=== PATIENT | male | born 1965 | race Caucasian/White ===

== ENCOUNTER 2017-09-10 16:04 | Observation (INO) ==
[2017-09-10] MEDS ORDERED: 0.9 % Sodium Chloride 1,000 ML IVC ONE (16:17)
[2017-09-10 16:45] LABS: ABG Base Excess 1 mEq/L (-2 to 3); ABG HCO3 27 mEq/L (21-27); ABG Oxygen Saturation 94 % (95-98); ABG PCO2 47 mmHg (35-45); ABG PH 7.37 pH Units (7.32-7.45); ABG PO2 74 mmHg (85-104); ABG TCO2 28 mEq/L (20-26)
[2017-09-10 17:14] LABS: Basophils % 0.4 %; Eosinophils # 0.1 K/mcL (0.0-0.6); Eosinophils % 1.5 %; Hematocrit 47.2 % (37.5-50.1); Hemoglobin 16.2 g/dL (12.9-16.9); Immature Granulocytes % 0.4 % (0-4); Lymphocytes # 1.9 K/mcL (0.6-4.6); Lymphocytes % 22.9 %; Mean Corpuscular HGB Conc 34.3 g/dL (31.6-35.5); Mean Corpuscular Hemoglobin 29.6 pg (28.0-33.3); Mean Corpuscular Volume 86.1 fL (83.0-100.0); Mean Platelet Volume 10.7 fL (9.4-12.4); Monocytes # 0.4 K/mcL (0.0-1.3); Monocytes % 4.9 %; Neutrophils # 5.9 K/mcL (1.6-8.9); Platelet Count 183 K/mcL (140-400); Red Blood Count 5.48 M/mcL (4.19-5.50); Red Cell Distribution Width 13.2 % (11.5-14.5); Segmented Neutrophils % 69.9 %
[2017-09-10 17:21] LABS: INR 2.9; Prothrombin Time 32.3 Seconds (9.4-12.1)
--- NOTE | 2017-09-10 17:21 | Emergency Department Note ---
Disposition Clinical Impression: History of mitral valve replacement with mechanical valve, Hypertrophic obstructive cardiomyopathy (HOCM), History of ventricular septal myectomy Altered mental status Qualifiers: Altered mental status type: unspecified Qualified Code(s): R41.82 - Altered mental status, unspecified Disposition: Admitted As Inpatient Condition: Fair Time of Disposition: 19:45 Altered Mental Status HPI - General Chief Complaint: ED Altered Mental Status Stated Complaint: AMS Time Seen by Provider: 09/10/17 16:06 Source: patient Mode of arrival: ambulatory Limitations: no limitations Nursing Notes Reviewed: Yes Vital Signs Reviewed: Yes - History of Present Illness HPI Narrative: 52-year-old male presented to the emergency department with altered mental status. They said that he went to bed last night was normal woke up this was about 9:00 he was normal again but he did take sleep medication including and BN and lorazepam this is normal for him. He said now he is very weak very tired and seems to be very confused. When asked with the present was he said it was Diego Kemp. The head is a very abnormal for him. Patient was recently diagnosed with diabetes started on metformin this been patient since then. Patient does have history of HOCM where he has had multiple cardiac surgeries. He also had a valve replacement so he is on Coumadin. Patient states there is been no falls and family agrees. He does not have any pain anywhere. He is not hurting anywhere patient is deftly very confused and lethargic. He has not had any fevers or chills or nausea or vomiting or chest pain or shortness of breath or headache or blurry vision or neck pain or back pain or abdominal pain or pain with urination or pain or to 90 arms or legs or generalized weakness or changes in bowel movements. - Related Data Home Medications Medication Instructions Recorded Confirmed Furosemide [Lasix] 20 mg PO DAILY 08/01/15 09/10/17 LORazepam [Ativan] 1 mg PO BID PRN 08/01/15 09/10/17 Spironolactone [Aldactone] 50 mg PO QAM 08/01/15 09/10/17 Warfarin [Coumadin] 5 mg PO MOTUTHFRSA 08/01/15 09/10/17 Carvedilol 18.75 mg PO BID 10/07/16 09/10/17 amLODIPine [Norvasc] 5 mg PO DAILY 10/07/16 09/10/17 Simvastatin [Zocor] 20 mg PO HS 09/10/17 09/10/17 Tamsulosin [Flomax] 0.4 mg PO HS 09/10/17 09/10/17 Warfarin [Coumadin] 2.5 mg PO SUWE 09/10/17 09/10/17 Zolpidem [Ambien] 10 mg PO HS PRN 09/10/17 09/10/17 metFORMIN [Glucophage] 500 mg PO BID 09/10/17 09/10/17 Allergies Allergy/AdvReac Type Severity Reaction Status Date / Time No Known Allergies Allergy Verified 11/14/16 09:07 Review of Systems: 10 point review of systems done and negative unless otherwise stated in the history of present illness. All systems ED: reviewed and negative except as stated. Review of Systems: As Per [facility] Past Medical History - Past Medical History Attestation: Yes The following information was validated with the patient. Source: patient Medical history: Reports: atrial fibrillation, cardiomyopathy, CHF, coronary artery disease, GERD, hypertension, myocardial infarction, valvular heart disease, other Surgical history: Reports: heart valve replacement, pacemaker/AICD Psychiatric history: Reports: anxiety, panic disorder - Social History Smoking Status: Former smoker Smokeless Tobacco Status: No Alcohol use: Reports: none Drug use: Reports: none Physical Exam - General Limitations: no limitations General appearance: alert, in no apparent distress - Head Head exam: atraumatic, normocephalic, normal inspection - Eye Eye exam: Present: normal appearance, PERRL, EOMI - ENT ENT exam: normal exam, normal oropharynx, mucous membranes moist - Neck Neck exam: Present: normal inspection, full ROM, trachea midline - Chest Chest inspection: Present: normal inspection, symmetric chest wall rise - Respiratory Respiratory exam: Present: normal lung sounds bilaterally - Cardiovascular Cardiovascular exam: Present: regular rate, normal rhythm, normal heart sounds - Abdominal Exam Abdominal exam: Present: soft, Non-Tender. Absent: tenderness, distention, guarding, rebound, rigidity - Extremities Exam Extremities exam: Present: normal inspection, full ROM. Absent: tenderness, pedal edema - Expanded Lower Extremity Exam Neurovascular/Tendon exam: Present: normal capillary refill. Absent: pulse deficit, motor deficit, sensory deficit, tendon deficit - Back Exam Back exam: Present: normal inspection, full ROM. Absent: tenderness, CVA tenderness (R), CVA tenderness (L) - Neurological Exam Neurological exam: Present: alert, oriented X3 - Expanded Neurological Exam Patient oriented to: Present: person, place Speech: Present: fluid speech Cranial nerves: EOM function (II, III, IV, ): Normal, facial sensation (V): Normal, facial palsy (VII): Normal, spinal accessory function (XI): Normal, tongue deviation (XII): Normal Cerebellar function: finger to nose: Normal, heel to burrell: Normal Motor strength - LUE: 3/5 Motor strength - RUE: 3/5 Motor strength - LLE: 3/5 Motor strength - RLE: 3/5 Upper motor neuron exam: charu neglect: Absent bilaterally, pronator drift: Absent bilaterally Sensory exam upper extremity: light touch: Normal Sensory exam lower extremity: light touch: Normal Coma Scale Eye Opening: Spontaneous Coma Scale Motor Response: Obeys Commands Coma Scale Verbal Response: Confused Coma Scale Total: 14 - Skin Skin exam: Present: warm, dry, intact, normal color Course Course Narrative: 52-year-old male presented to the emergency department complaining of change in mental status. We will get CT head as well as labs including CBC, BMP, lactate , ABG carboxyhemoglobin, urinalysis, troponin, EKG as well as urinalysis and chest x-ray. There is no acute focal signs or neurological deficits there is no reason to call a code stroke at this time. Disposition pending results. Vital Signs Temperature 98.1 F 09/10/17 16:08 Pulse Rate 64 09/10/17 16:08 Respiratory Rate 18 09/10/17 16:08 Blood Pressure 149/93 09/10/17 16:08 O2 Sat by Pulse Oximetry 98 09/10/17 16:08 Temperature 98.2 F 09/10/17 20:13 Pulse Rate 62 09/10/17 18:22 Respiratory Rate 18 09/10/17 20:13 Blood Pressure 152/84 09/10/17 20:13 O2 Sat by Pulse Oximetry 97 09/10/17 18:22 Oxygen Delivery Oxygen Delivery Room Air Altered Mental Status - MDM Narrative Medical decision making narrative: 52-year-old male presents to the emergency department complaining of altered mental status. After evaluating him he is alert and partially oriented only to person and place but not to time. He is still little confused. We did do CT head as well as chest x-ray. These came back negative. All labs came back negative including urinalysis urine drug screen as well as carboxyhemoglobin ABG and all other labs. Patient is still stable at this time. There was no signs of fevers. We did not find etiology for his altered mental status. Did talk about doing lumbar puncture and the patient will due to him being on Coumadin because of a cousin of his valve replacement we felt that was not to be done here in the emergency department. Patient most likely needs an MRI for further evaluation of his altered mental status. I spoke with the Hospital is Dr. Rmairez who agreed to admit the patient to their service. Patient is admitted in stable condition. Patient did not have any acute neurological findings. He also has no normal and a clock this morning there is no reason to call a code stroke at this time. Head CT 09/10/17 16:13 IMPRESSION: No acute intracranial abnormality. D/ / Leon Ambrocio / Leon Ambrocio Interpreting Provider: Leon Ambrocio Chest X-Ray 09/10/17 16:17 IMPRESSION: No evidence of acute cardiopulmonary process. D/ / Alon Jesus MD / Alon Jesus MD Interpreting Provider: Alon Jesus MD - Medical Records Medical records reviewed: Yes I reviewed the patient's medical records. - Lab Data Lab results reviewed: Yes I reviewed the patient's lab results. Result diagrams: 09/10/17 16:37 09/10/17 16:37 Lab Results 09/10/17 09/10/17 09/10/17 Range/Units 16:27 16:37 16:37 WBC 8.4 (4.3-11.1) K/mcL RBC 5.48 (4.19-5.50) M/mcL Hgb 16.2 (12.9-16.9) g/dL Hct 47.2 (37.5-50.1) % MCV 86.1 (83.0-100.0) fL MCH 29.6 (28.0-33.3) pg MCHC 34.3 (31.6-35.5) g/dL RDW 13.2 (11.5-14.5) % Plt Count 183 (140-400) K/mcL MPV 10.7 (9.4-12.4) fL Immature Gran % 0.4 (0-4) % Seg Neutrophils % 69.9 % Lymphocytes % 22.9 % Monocytes % 4.9 % Eosinophils % 1.5 % Basophils % 0.4 % Neutrophils # 5.9 (1.6-8.9) K/mcL Lymphocytes # 1.9 (0.6-4.6) K/mcL Monocytes # 0.4 (0.0-1.3) K/mcL Eosinophils # 0.1 (0.0-0.6) K/mcL Basophils # 0.0 (0.0-0.2) K/mcL PT (9.4-12.1) Seconds INR APTT (26.0-36.0) Seconds ABG pH 7.37 (7.32-7.45) pH Units ABG pCO2 47 H (35-45) mmHg ABG pO2 74 L (85-104) mmHg ABG HCO3 27 (21-27) mEq/L ABG Total CO2 28 H (20-26) mEq/L ABG O2 Saturation 94 L (95-98) % ABG Base Excess 1 (-2 to 3) mEq/L Carboxyhemoglobin 5.8 H (0-5) % Inspired O2 21.0 (1-15=lpm [id number]=%) Sodium (136-145) mEq/L Potassium (3.5-5.1) mEq/L Chloride (98-107) mEq/L Carbon Dioxide (23-29) mEq/L BUN (6-20) mg/dL Creatinine (0.70-1.30) mg/dL Est GFR ( Amer) (> 60) Est GFR (Non-Af Amer) (> 60) BUN/Creatinine Ratio (6-26) Glucose (70-105) mg/dL Calculated Osmolality (280-300) Calcium (8.6-10.3) mg/dL Total Bilirubin (0.3-1.0) mg/dL Direct Bilirubin (0.0-0.2) mg/dL Indirect Bilirubin (0.0-1.2) mg/dL AST (13-39) Units/L ALT (7-52) Units/L Alkaline Phosphatase (34-104) Units/L Ammonia (16-53) mcmol/L Troponin I (< 0.04) ng/mL Serum Total Protein (6.4-8.9) g/dL Albumin (3.5-5.7) g/dL Globulin (2.4-3.5) g/dL Albumin/Globulin Ratio (1.1-2.2) TSH (0.340-5.600) mcIU/mL Urine Color (Yellow) Urine Clarity (Clear) Urine pH (5.0-8.0) pH Units Ur Specific [place] (1.010-1.025) Urine Protein (Neg-Trace) mg/dL Urine Glucose (UA) (Normal) mg/dL Urine Ketones (Negative) mg/dL Urine Blood (Negative) Urine Nitrite (Negative) Urine Bilirubin (Negative) Urine Urobilinogen (Normal) mg/dL Ur Leukocyte Esterase (Negative) Ur Culture Indicated? (NO) Urine Opiates Screen (Dnoyen=115) ng/mL Ur Barbiturates Screen (Dluvcq=645) ng/mL Ur Phencyclidine Scrn (Cutoff=25) ng/mL Ur Amphetamines Screen (Teqhum=0904) ng/mL U Benzodiazepines Scrn (Gpnkrt=381) ng/mL Urine Cocaine Screen (Cutoff= 300) ng/mL U Marijuana (THC) Screen (Cutoff = 50) ng/mL Ethyl Alcohol (Less than 10) mg/dL 09/10/17 09/10/17 09/10/17 Range/Units 16:37 16:37 16:37 WBC (4.3-11.1) K/mcL RBC (4.19-5.50) M/mcL Hgb (12.9-16.9) g/dL Hct (37.5-50.1) % MCV (83.0-100.0) fL MCH (28.0-33.3) pg MCHC (31.6-35.5) g/dL RDW (11.5-14.5) % Plt Count (140-400) K/mcL MPV (9.4-12.4) fL Immature Gran % (0-4) % Seg Neutrophils % % Lymphocytes % % Monocytes % % Eosinophils % % Basophils % % Neutrophils # (1.6-8.9) K/mcL Lymphocytes # (0.6-4.6) K/mcL Monocytes # (0.0-1.3) K/mcL Eosinophils # (0.0-0.6) K/mcL Basophils # (0.0-0.2) K/mcL PT 32.3 H (9.4-12.1) Seconds INR 2.9 APTT 44.8 H (26.0-36.0) Seconds ABG pH (7.32-7.45) pH Units ABG pCO2 (35-45) mmHg ABG pO2 (85-104) mmHg ABG HCO3 (21-27) mEq/L ABG Total CO2 (20-26) mEq/L ABG O2 Saturation (95-98) % ABG Base Excess (-2 to 3) mEq/L Carboxyhemoglobin (0-5) % Inspired O2 (1-15=lpm [id number]=%) Sodium 132 L (136-145) mEq/L Potassium 4.0 (3.5-5.1) mEq/L Chloride 99 (98-107) mEq/L Carbon Dioxide 25 (23-29) mEq/L BUN 13 (6-20) mg/dL Creatinine 0.91 (0.70-1.30) mg/dL Est GFR ( Amer) > 60 (> 60) Est GFR (Non-Af Amer) > 60 (> 60) BUN/Creatinine Ratio 14 (6-26) Glucose 374 H (70-105) mg/dL Calculated Osmolality 289 (280-300) Calcium 9.4 (8.6-10.3) mg/dL Total Bilirubin 1.9 H (0.3-1.0) mg/dL Direct Bilirubin 0.4 H (0.0-0.2) mg/dL Indirect Bilirubin 1.5 H (0.0-1.2) mg/dL AST 18 (13-39) Units/L ALT 27 (7-52) Units/L Alkaline Phosphatase 97 (34-104) Units/L Ammonia 46 (16-53) mcmol/L Troponin I < 0.03 (< 0.04) ng/mL Serum Total Protein 7.4 (6.4-8.9) g/dL Albumin 4.4 (3.5-5.7) g/dL Globulin 3.0 (2.4-3.5) g/dL Albumin/Globulin Ratio 1.5 (1.1-2.2) TSH 2.506 (0.340-5.600) mcIU/mL Urine Color (Yellow) Urine Clarity (Clear) Urine pH (5.0-8.0) pH Units Ur Specific [place] (1.010-1.025) Urine Protein (Neg-Trace) mg/dL Urine Glucose (UA) (Normal) mg/dL Urine Ketones (Negative) mg/dL Urine Blood (Negative) Urine Nitrite (Negative) Urine Bilirubin (Negative) Urine Urobilinogen (Normal) mg/dL Ur Leukocyte Esterase (Negative) Ur Culture Indicated? (NO) Urine Opiates Screen (Vutlsw=888) ng/mL Ur Barbiturates Screen (Gttgid=883) ng/mL Ur Phencyclidine Scrn (Cutoff=25) ng/mL Ur Amphetamines Screen (Nhduoi=6978) ng/mL U Benzodiazepines Scrn (Kfxiqg=050) ng/mL Urine Cocaine Screen (Cutoff= 300) ng/mL U Marijuana (THC) Screen (Cutoff = 50) ng/mL Ethyl Alcohol < 10 (Less than 10) mg/dL 09/10/17 09/10/17 Range/Units 18:00 18:00 WBC (4.3-11.1) K/mcL RBC (4.19-5.50) M/mcL Hgb (12.9-16.9) g/dL Hct (37.5-50.1) % MCV (83.0-100.0) fL MCH (28.0-33.3) pg MCHC (31.6-35.5) g/dL RDW (11.5-14.5) % Plt Count (140-400) K/mcL MPV (9.4-12.4) fL Immature Gran % (0-4) % Seg Neutrophils % % Lymphocytes % % Monocytes % % Eosinophils % % Basophils % % Neutrophils # (1.6-8.9) K/mcL Lymphocytes # (0.6-4.6) K/mcL Monocytes # (0.0-1.3) K/mcL Eosinophils # (0.0-0.6) K/mcL Basophils # (0.0-0.2) K/mcL PT (9.4-12.1) Seconds INR APTT (26.0-36.0) Seconds ABG pH (7.32-7.45) pH Units ABG pCO2 (35-45) mmHg ABG pO2 (85-104) mmHg ABG HCO3 (21-27) mEq/L ABG Total CO2 (20-26) mEq/L ABG O2 Saturation (95-98) % ABG Base Excess (-2 to 3) mEq/L Carboxyhemoglobin (0-5) % Inspired O2 (1-15=lpm [id number]=%) Sodium (136-145) mEq/L Potassium (3.5-5.1) mEq/L Chloride (98-107) mEq/L Carbon Dioxide (23-29) mEq/L BUN (6-20) mg/dL Creatinine (0.70-1.30) mg/dL Est GFR ( Amer) (> 60) Est GFR (Non-Af Amer) (> 60) BUN/Creatinine Ratio (6-26) Glucose (70-105) mg/dL Calculated Osmolality (280-300) Calcium (8.6-10.3) mg/dL Total Bilirubin (0.3-1.0) mg/dL Direct Bilirubin (0.0-0.2) mg/dL Indirect Bilirubin (0.0-1.2) mg/dL AST (13-39) Units/L ALT (7-52) Units/L Alkaline Phosphatase (34-104) Units/L Ammonia (16-53) mcmol/L Troponin I (< 0.04) ng/mL Serum Total Protein (6.4-8.9) g/dL Albumin (3.5-5.7) g/dL Globulin (2.4-3.5) g/dL Albumin/Globulin Ratio (1.1-2.2) TSH (0.340-5.600) mcIU/mL Urine Color Yellow (Yellow) Urine Clarity Clear (Clear) Urine pH 6.0 (5.0-8.0) pH Units Ur Specific [place] > 1.030 H (1.010-1.025) Urine Protein Negative (Neg-Trace) mg/dL Urine Glucose (UA) >=1000 H (Normal) mg/dL Urine Ketones Negative (Negative) mg/dL Urine Blood Negative (Negative) Urine Nitrite Negative (Negative) Urine Bilirubin Negative (Negative) Urine Urobilinogen Normal (Normal) mg/dL Ur Leukocyte Esterase Negative (Negative) Ur Culture Indicated? NO (NO) Urine Opiates Screen Negative (Jttvps=611) ng/mL Ur Barbiturates Screen Negative (Kiuovt=355) ng/mL Ur Phencyclidine Scrn Negative (Cutoff=25) ng/mL Ur Amphetamines Screen Negative (Ykiamb=9789) ng/mL U Benzodiazepines Scrn Negative (Wtyjei=253) ng/mL Urine Cocaine Screen Negative (Cutoff= 300) ng/mL U Marijuana (THC) Screen Negative (Cutoff = 50) ng/mL Ethyl Alcohol (Less than 10) mg/dL - Radiology Data Radiology results reviewed: Yes I reviewed the patient's radiology results. - EKG Data EKG attestation: Yes I reviewed and interpreted this EKG. EKG results narrative: EKG done at 1618 review by myself and the attending shows sinus rhythm at a rate of 62, IA interval 141, QRS 170, QTC 462 with a leftward axis. There is signs of hokum which is known based on his history. No ST changes no other ST elevations are new signs of ischemia. Does have left bundle-branch block. No there are signs of hypertrophy of no heart signs of strain. No other heart blocks. No WPW/Brugada syndrome. Attestation Statement - Attestation Attestation: I examined this patient and my medical decision-making was reviewed with the Resident Physician. I agree with the documented findings, disposition and treatment plan as described except to the extent set forth below. Findings consistent with altered mental status. Possibly related to polypharmacy however cannot exclude other [employer] causes. CT shows no acute findings. I would defer LP due to anticoagulation with Coumadin. Patient has been admitted for MRI and further evaluation of altered mental status. I spent greater than 35 minutes of critical care time resuscitating this acutely ill patient suffering from altered mental status. This is excluding billable procedures.
[2017-09-10 17:24] LABS: Activated Partial Thrombo Time 44.8 Seconds (26.0-36.0)
[2017-09-10 17:26] LABS: Troponin I < 0.03 ng/mL (< 0.04)
[2017-09-10 17:27] LABS: Alanine Aminotransferase 27 Units/L (7-52); Albumin 4.4 g/dL (3.5-5.7); Albumin/Globulin Ratio 1.5 (1.1-2.2); Alkaline Phosphatase 97 Units/L (34-104); Aspartate Amino Transferase 18 Units/L (13-39); BUN/Creatinine Ratio 14 (6-26); Bilirubin,Direct 0.4 mg/dL (0.0-0.2); Bilirubin,Indirect 1.5 mg/dL (0.0-1.2); Bilirubin,Total 1.9 mg/dL (0.3-1.0); Blood Urea Nitrogen 13 mg/dL (6-20); Calcium 9.4 mg/dL (8.6-10.3); Carbon Dioxide 25 mEq/L (23-29); Chloride 99 mEq/L (98-107); Ethanol < 10 mg/dL (Less than 10); Glucose 374 mg/dL (70-105); Osmolality,Calculated 289 (280-300); Sodium 132 mEq/L (136-145); Total Protein 7.4 g/dL (6.4-8.9); eGFR For African Americans > 60 (> 60); eGFR For Non-African Americans > 60 (> 60)
[2017-09-10 17:41] LABS: Thyroid Stimulating Hormone 2.506 mcIU/mL (0.340-5.600)
[2017-09-10 18:12] LABS: Bilirubin,Urine Negative (Negative); Blood,Urine Negative (Negative); Clarity,Urine Clear (Clear); Color,Urine Yellow (Yellow); Glucose,Urine (UA) >=1000 mg/dL (Normal); Ketones,Urine Negative (Negative); Leukocyte Esterase,Urine Negative (Negative); Nitrite,Urine Negative (Negative); Protein,Urine Negative (Neg-Trace); Specific Gravity,Urine > 1.030 (1.010-1.025); Urobilinogen,Urine Normal (Normal)
[2017-09-10 18:23] LABS: Amphetamine Screen,Urine Negative ng/mL (Cutoff=1000); Barbiturate Screen,Urine Negative ng/mL (Cutoff=200); Benzodiazepines Screen,Urine Negative ng/mL (Cutoff=200); Cannabinoid Screen,Urine Negative ng/mL (Cutoff = 50); Cocaine Screen,Urine Negative ng/mL (Cutoff= 300); Opiate Screen,Urine Negative ng/mL (Cutoff=300); Phencyclidine Screen,Urine Negative ng/mL (Cutoff=25)
[2017-09-10] MEDS ORDERED: Naloxone 0.4 MG/ML INJ IVP PRN (20:36)
[2017-09-10] MEDS ORDERED: Acetaminophen 325 MG TABLET PO PRN (20:36)
[2017-09-10] MEDS ORDERED: *HR* Dextrose 50 % in Water (Syg) 50 ML SYRINGE IVP PRN (20:41)
[2017-09-10] MEDS ORDERED: D5% in Water 1,000 ML IVC PRN (20:41)
[2017-09-10] MEDS ORDERED: Dextrose Gel 15 GM/37.5 ML TUBE PO PRN ×2 (20:41)
[2017-09-10] MEDS ORDERED: *HR* LORazepam 0.5 MG TABLET PO PRN (20:42)
[2017-09-10] MEDS ORDERED: Insulin LISPRO 300 UNITS/3 ML VIAL SQ SCH (21:00)
--- NOTE | 2017-09-10 22:32 | Internal Med History&Physical ---
Date of Encounter: 09/10/17 Time of Encounter: 19:30 Assessment and Plan (1) Altered mental status Current visit: Yes Status: Acute Patient has behavior and gait change and some slurred speech. Although CT head negative, still needed to rule out infarct considering patient has complicated heart disease and valve replacement. - Patient needs a MRI, However, pt has PPM so it is contraindicate for MRI - Place pt on continuous cardiac monitoring, echo and duplex carotid. - NIHSS protocol for neuro check - Pt is not a tPA candidate because symptoms happens since moring 6-9am and pt is taking coumadin. - Consult neurology in AM Qualifiers: Altered mental status type: disorientation Qualified Code(s): R41.0 - Disorientation, unspecified (2) History of mitral valve replacement with mechanical valve Current visit: Yes Status: Acute Cont coumadin (3) History of ventricular septal myectomy Current visit: Yes Status: Acute Closely monitor pt. He is euvolumic now. (4) Hypertrophic obstructive cardiomyopathy (HOCM) Current visit: Yes Status: Acute S/P septal myectomy. Cont BB (5) DVT prophylaxis Current visit: No Status: Acute Pt is on coumadin (6) Hypertension Current visit: No Status: Chronic Cont home med Qualifiers: Hypertension type: essential hypertension Qualified Code(s): I10 - Essential (primary) hypertension Internal Medicine - H&P: HPI Chief complaint: Altered mental status Admitted From: Home Plans for Post Hospital Care: Home History of present illness: Mr. Guzmán is a 52 year old male with history of hypertrophic obstructive cardiomyopathy S/P myoectomy, S/P mitral vital replacement, S/P nephrectomy, hypertension, diabetes, CHF S/P PPM/AICD, presented to ER for acute altered mental status. Patient is awake alert, but only oriented 1. He knows he is in [facility], but answered this year is 2016, and president is "Renteria". Per patient's , patient has altered mental status and behavior change since this morning, around 6 AM to 9 AM. Patient has visual hallucination, slurred speech, and unsteady gait. Patient complain nausea but no vomiting. Patient denies fever. Patient has a mild headache. Patient denies weakness or numbness. In the emergency room, CT head shows negative. Labs unremarkable. Patient was admitted for further management. Per patient's , his symptoms was worst at around 2 PM and gradually improved now. Past Med Surg Social Fam HX - Past Medical History Medical history: atrial fibrillation, cardiomyopathy, CHF, coronary artery disease, GERD, hypertension, myocardial infarction, valvular heart disease, other Psychiatric history: anxiety, panic disorder - Past Surgical History Surgical History: heart valve replacement, pacemaker/AICD - Social History Smoking Status: Former smoker Smokeless Tobacco Status: No Alcohol use: none Drug use: none - Family History Father Living Status: Still Living Hx Family Cardiac Disorders: Yes (CABG) Mother Adopted: No Family Member Ethnicity: Non- Living Status: Still Living Hx Family Cardiac Disorders: Yes (MVR,HTN) Hx Family Respiratory Disorders: No Hx Family Cancer: No Hx Family GI Disorders: Yes Hx Family Endocrine Disorder: No Hx Family Neuromuscular Disorders: No Hx Family Neurologic Disorders: No (hx CVA no deficits) Hx Family HEENT Disorders: No Hx Family Autoimmune Disorders: No Internal Medicine - H&P: Meds Furosemide [Lasix] 20 mg PO DAILY 08/01/15 [History] LORazepam [Ativan] 1 mg PO BID PRN 08/01/15 [History] Spironolactone [Aldactone] 50 mg PO QAM 08/01/15 [History] Warfarin [Coumadin] 5 mg PO MOTUTHFRSA 08/01/15 [History] Carvedilol 18.75 mg PO BID 10/07/16 [History] amLODIPine [Norvasc] 5 mg PO DAILY 10/07/16 [History] Simvastatin [Zocor] 20 mg PO HS 09/10/17 [History] Tamsulosin [Flomax] 0.4 mg PO HS 09/10/17 [History] Warfarin [Coumadin] 2.5 mg PO SUWE 09/10/17 [History] Zolpidem [Ambien] 10 mg PO HS PRN 09/10/17 [History] metFORMIN [Glucophage] 500 mg PO BID 09/10/17 [History] 3 Allergy/AdvReac Type Severity Reaction Status Date / Time No Known Allergies Allergy Verified 11/14/16 09:07 All Systems PM: A 10-system review of systems was performed and is negative for pertinent findings except as documented above in the HPI. - Constitutional Vitals: Temp Pulse Resp BP Pulse Ox 97.6 F 61 18 157/90 95 09/10/17 21:08 09/10/17 21:08 09/10/17 21:08 09/10/17 21:08 09/10/17 21:24 General appearance: Present: A&O X 1, no acute distress, answers questions appropriately - Head Head exam: Present: atraumatic, normocephalic - Eye Eye exam: Present: PERRL, conjuntiva pink, sclera anicteric Pupils: Present: PERRL - Neck Neck exam general surgery: Present: supple, trachea midline. Absent: lymphadenopathy, nuchal rigidity - Respiratory Respiratory exam: Present: CTAB. Absent: accessory muscle use, rales, rhonchi, wheezes - Cardiovascular Cardiovascular exam: Present: RRR, +S1, +S2. Absent: diastolic murmur, gallop, rubs, systolic murmur - GI/Abdominal GI/Abdominal exam: Present: normal bowel sounds, soft, no peritoneal signs. Absent: distended, tenderness - Extremities Exam Extremities exam: Present: warm, radial pulses palpable and symmetrical. Absent : calf tenderness, cyanotic, pedal edema - Neurological Exam Neurological exam: Present: CN II-XII intact, oriented X3, no focal deficits. Absent: normal gait (Patient has an unsteady gait), pronater drift, facial droop , speech deficit - Skin Skin exam: Present: dry, intact Internal Med - H&P Results - Labs CBC & Chem 7: 09/10/17 16:37 09/10/17 16:37
[2017-09-11 04:18] VITALS: BP 118/70
[2017-09-11 04:58] LABS: INR 2.9; Prothrombin Time 31.7 Seconds (9.4-12.1)
[2017-09-11 04:59] LABS: Basophils % 0.4 %; Eosinophils # 0.2 K/mcL (0.0-0.6); Eosinophils % 1.9 %; Hematocrit 43.2 % (37.5-50.1); Hemoglobin 14.8 g/dL (12.9-16.9); Immature Granulocytes % 0.4 % (0-4); Lymphocytes # 1.9 K/mcL (0.6-4.6); Lymphocytes % 23.2 %; Mean Corpuscular HGB Conc 34.3 g/dL (31.6-35.5); Mean Corpuscular Hemoglobin 29.5 pg (28.0-33.3); Mean Corpuscular Volume 86.2 fL (83.0-100.0); Mean Platelet Volume 10.7 fL (9.4-12.4); Monocytes # 0.5 K/mcL (0.0-1.3); Monocytes % 5.6 %; Neutrophils # 5.5 K/mcL (1.6-8.9); Platelet Count 153 K/mcL (140-400); Red Blood Count 5.01 M/mcL (4.19-5.50); Red Cell Distribution Width 13.4 % (11.5-14.5); Segmented Neutrophils % 68.5 %
[2017-09-11 05:08] LABS: BUN/Creatinine Ratio 12 (6-26); Blood Urea Nitrogen 11 mg/dL (6-20); Calcium 8.7 mg/dL (8.6-10.3); Carbon Dioxide 26 mEq/L (23-29); Chloride 104 mEq/L (98-107); Glucose 296 mg/dL (70-105); Magnesium 1.7 mg/dL (1.6-2.6); Osmolality,Calculated 292 (280-300); Potassium 4.1 mEq/L (3.5-5.1); Sodium 136 mEq/L (136-145); eGFR For African Americans > 60 (> 60); eGFR For Non-African Americans > 60 (> 60)
[2017-09-11] MEDS: Insulin LISPRO 300 UNITS/3 ML VIAL SQ SCH ×3 (08:38→17:18)
[2017-09-11] MEDS ORDERED: Furosemide 20 MG TABLET PO SCH (09:00)
[2017-09-11] MEDS ORDERED: amLODIPine 5 MG TABLET PO SCH (09:00)
[2017-09-11] MEDS ORDERED: Perflutren Lipid Microsphere 1.3 ML in 0.9 % Sodium Chloride 8.7 ML IVP ONE (10:17)
--- NOTE | 2017-09-11 11:14 | Neurology - Consult Note ---
Date of Encounter: 09/11/17 Time of Encounter: 07:15 Assessment and Plan (1) Altered mental status Current Visit: Yes Status: Acute This patient was admitted earlier with the mental status changes not able to recall any of the event without any focal findings on his neurological examination. So far workup including echo carotid all has been negative. He did have a multiple risk factors for the stroke but the symptom does not seem to be typical for a stroke or TIA. One possibility about the symptoms that it could be related to nonconvulsive seizures that may present in a similar fashion. At the same time other possibility would be off for transient global amnesia. (TGA ) but the history does not seems to be typical off it but we do have to get some more information from his regarding the presentation as patient not able to give much history. But even if it is a be less likely as is not a recovering event. possibility remains off nonconvulsive seizure. For that reason I would suggest getting a EEG. Patient already on anticoagulation because of his heart and the INR seems to be therapeutic. Check for other metabolic and other any infectious etiology so far all workup has been negative Also recommend that patient should be on seizure precautions: Patient was asked not to drive until seizure-free for 6 months. Patient was asked not to work in close proximity of machines with moving parts, not to swim unsupervised, not to take tub baths or showers with water accumulation, and not to work at high places. We will follow with the EEG results Qualifiers: Altered mental status type: disorientation Qualified Code(s): R41.0 - Disorientation, unspecified (2) History of mitral valve replacement with mechanical valve Current Visit: Yes Status: Acute History of Present Illness HPI: Mr. Guzmán is a 52 year old male with history of hypertrophic obstructive cardiomyopathy S/P myoectomy, S/P mitral vital replacement, S/P nephrectomy, hypertension, diabetes, CHF S/P PPM/AICD, presented to ER for acute altered mental status. According to the records patient presented with this acute onset of confusion started the morning of the admission around 6 AM to 9 AM. Patient noted to have slurred speech, and unsteady gait. Patient complain nausea but no vomiting. Patient denies fever. Patient has a mild headache. Patient denies weakness or numbness. In the emergency room, CT head shows negative. Labs unremarkable. Patient was admitted for further management. Denies any symptoms seems to be back to his baseline he is not able to recall any of the events He did have a previous episodes like this in the past but not able to give much detailed description about them. Past Med Surg Social Fam HX - Past Medical History Medical history: atrial fibrillation, cardiomyopathy, CHF, coronary artery disease, GERD, hypertension, myocardial infarction, valvular heart disease, other Psychiatric history: anxiety, panic disorder - Past Surgical History Surgical History: heart valve replacement, pacemaker/AICD - Social History Smoking Status: Former smoker Smokeless Tobacco Status: No Alcohol use: none Drug use: none - Family History Father Living Status: Still Living Hx Family Cardiac Disorders: Yes (CABG) Mother Adopted: No Family Member Ethnicity: Non- Living Status: Still Living Hx Family Cardiac Disorders: Yes (MVR,HTN) Hx Family Respiratory Disorders: No Hx Family Cancer: No Hx Family GI Disorders: Yes Hx Family Endocrine Disorder: No Hx Family Neuromuscular Disorders: No Hx Family Neurologic Disorders: No (hx CVA no deficits) Hx Family HEENT Disorders: No Hx Family Autoimmune Disorders: No Medications and Allergies Furosemide [Lasix] 20 mg PO DAILY 08/01/15 [History] LORazepam [Ativan] 1 mg PO BID PRN 08/01/15 [History] Spironolactone [Aldactone] 50 mg PO QAM 08/01/15 [History] Warfarin [Coumadin] 5 mg PO MOTUTHFRSA 08/01/15 [History] Carvedilol 18.75 mg PO BID 10/07/16 [History] amLODIPine [Norvasc] 5 mg PO DAILY 10/07/16 [History] Simvastatin [Zocor] 20 mg PO HS 09/10/17 [History] Tamsulosin [Flomax] 0.4 mg PO HS 09/10/17 [History] Warfarin [Coumadin] 2.5 mg PO SUWE 09/10/17 [History] Zolpidem [Ambien] 10 mg PO HS PRN 09/10/17 [History] metFORMIN [Glucophage] 500 mg PO BID 09/10/17 [History] 3 Allergy/AdvReac Type Severity Reaction Status Date / Time No Known Allergies Allergy Verified 11/14/16 09:07 All Systems: The remainder of the systems were reviewed and are negative Physical Examination - Vital Signs Vital Signs: Initial Vital Signs Temp Pulse Resp BP Pulse Ox 98.1 F 64 18 149/93 98 09/10/17 16:08 09/10/17 16:08 09/10/17 16:08 09/10/17 16:08 09/10/17 16:08 - Constitutional General appearance: comfortable - Neurologic Detailed motor examination: full strength in all major muscle groups Motor examination - right side: 10/18: deltoids, biceps, triceps, wrist flexion, wrist extension, wood patternmaker apprentice, hip flexors, tibialis Anterior, quadriceps, toe extension (EHL), plantarflexion Motor examination - left side: 10/18: deltoids, biceps, triceps, wrist flexion, wrist extension, hip flexors, wood patternmaker apprentice, quadriceps, tibialis Anterior, toe extension (EHL), plantarflexion Detailed sensory examination: intact Reflexes: Biceps: 1+, Triceps: 1+, Brachioradialis: 1+, Patella: 1+, Achilles: 1 + Mental Status Examination: awake, alert, oriented to person, oriented to place, oriented to time, follows commands appropriately, answers questions appropriately, no agnosia, no aphasia, no aproxia Cranial nerve examination: PERRL, EOMI, visual nazario intact, corneal reflexes brisk symmetrically, sensory to face intact, mastication intact, no facial asymmetry is present, no dysarthria, hearing is intact symmetrically, soft palate elevates bilaterally upon phonation, gag reflex intact, flexes SCM and trapezius muscles symmetrically with full power, tongue protrudes midline, no atrophy or facial fasiculations present Cerebellar examination: no dysmetria, performs finger to nose and heel to burrell symmetrically without ataxia, no gait ataxia, no truncal ataxia, no difficulty with rapid alternating movements Results - Laboratory Findings CBC and BMP: 09/11/17 04:15 09/11/17 04:15 Abnormal lab findings: Abnormal lab results PT 31.7 Seconds (9.4-12.1) H 09/11/17 04:15 APTT 44.8 Seconds (26.0-36.0) H 09/10/17 16:37 ABG pCO2 47 mmHg (35-45) H 09/10/17 16:27 ABG pO2 74 mmHg (85-104) L 09/10/17 16:27 ABG Total CO2 28 mEq/L (20-26) H 09/10/17 16:27 ABG O2 Saturation 94 % (95-98) L 09/10/17 16:27 Carboxyhemoglobin 5.8 % (0-5) H 09/10/17 16:37 Glucose 296 mg/dL (70-105) H 09/11/17 04:15 POC Glucose 251 (58-89) H 09/10/17 20:55 Total Bilirubin 1.9 mg/dL (0.3-1.0) H 09/10/17 16:37 Direct Bilirubin 0.4 mg/dL (0.0-0.2) H 09/10/17 16:37 Indirect Bilirubin 1.5 mg/dL (0.0-1.2) H 09/10/17 16:37 Ur Specific [place] > 1.030 (1.010-1.025) H 09/10/17 18:00 Urine Glucose (UA) >=1000 mg/dL (Normal) H 09/10/17 18:00 - Diagnostic Findings Additional findings: CT scan of the head was negative. Carotid and echo was also negative Consult Discharge Plan - Plan Referrals: Maura Vizcarra MD [Primary Care Provider] -
[2017-09-11 12:49] LABS: Folate 15.3 ng/mL (3.0-16.0)
--- NOTE | 2017-09-11 16:44 | Electrocardiograph Report ---
[address] [address] Test Date: 2017-09-10 Pat Name: Aki Guzmán Department: 104 Room: 3B Gender: M [employer]ry Tender: PALOMA : 1965 Requested By: Landen Snow Order Number: [id number] Reading MD: Wilfredo Olmedo Measurements Intervals [place] Rate: 62 P: -59 MS: 141 QRS: -27 QRSD: 170 T: 168 QT: 457 QTc: 462 Interpretive Statements SINUS RHYTHM LEFT BUNDLE BRANCH BLOCK Electronically Signed On 09-11-2017 16:42:42 EDT by Wilfredo Olmedo
--- NOTE | 2017-09-11 16:46 | EEG/EMG/Oth Biometrics Report ---
EEG Procedure Report Date of procedure: 09/11/17 EEG Procedure: Routine EEG Procedure Note: FINDINGS: Background rhythm during awake stage shows well-organized, well- developed, average voltage 8 to 9 hertz alpha activity in the posterior regions. It blocks with eye opening and it is bilaterally synchronous and symmetrical. No [id number] discharges or any lateralizing abnormalities are seen. Photic stimulation did not produce any abnormalities. Hyperventilation was performed for 3 minutes. No abnormalities were found during the procedure. Intermittent EMG artifacts were seen. Stage II sleep was not achieved. IMPRESSION: Normal awake study. No epileptiform discharges or any other paroxysmal activities or focal abnormalities seen. Clinical correlation is recommended.
--- NOTE | 2017-09-11 17:04 | Internal Med Progress Note ---
Date of Encounter: 09/11/17 Time of Encounter: 09:00 - Assessment and plan (1) Altered mental status Current Visit: Yes Status: Acute Assessment and plan: Pt reports having no memory of most of yesterday. 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 He states that his daughters were home and they said that they saw him trying to make [employer]oh[employer] work. No one else was home to report his activities. He states that he doesn't remember much until he came to the ER. Prior history of same, but "not as bad as this." Family reports visual hallucinations, slurred speech, and unsteady gait during episode. He reports nausea without vomiting, no headache, weakness, numbness, or tingling. Symptoms lasted anywhere from 6-8 hours. Pt has returned to his baseline and has no focal deficits. Head CT negative in the ER. Pt had mild hyponatremia that has resolved, mild hyperglycemia, no leukocytosis or signs of infection. His vitals have been stable with mild HTN, which also resolved. Pt cannot have MRI due to pacemaker. Pt was evaluated by neurology and EEG was ordered, results not available at this time. I did speak with Dr. Condon who suggests that these episodes could be seizures. Will follow up with pt in the office in a few weeks for follow up EEG. Continue to monitor for safety and falls despite resolution of symptoms. Qualifiers: Altered mental status type: disorientation Qualified Code(s): R41.0 - Disorientation, unspecified (2) History of mitral valve replacement with mechanical valve Current Visit: Yes Status: Chronic Assessment and plan: Per history. Pt on Warfarin, therapeutic. (3) History of ventricular septal myectomy Current Visit: Yes Status: Chronic Assessment and plan: Chronic. Pt is stable. (4) Hypertrophic obstructive cardiomyopathy (HOCM) Current Visit: Yes Status: Chronic Assessment and plan: Chronic. Pt stable. Continue BB. (5) Hypertension Current Visit: Yes Status: Chronic Assessment and plan: Pt with elevated BP on arrival, has resolved and is WNL. Continue home medications. Qualifiers: Hypertension type: essential hypertension Qualified Code(s): I10 - Essential (primary) hypertension (6) DVT prophylaxis Current Visit: Yes Status: Acute Assessment and plan: Pt therapeutic on Warfarin. - Time Spent With Patient less than 15 minutes - Subjective Interval history: Pt was seen and assessed at 0900. Pt appears to have returned to baseline. He denies any symptoms. He denies dizziness, n/v/d, diaphoresis, abdominal pain, chest pain, SOB. - Constitutional Vitals: Temp Pulse Resp BP Pulse Ox 98.0 F 60 16 118/70 94 09/11/17 04:17 09/11/17 04:17 09/11/17 04:17 09/11/17 04:17 09/11/17 04:17 General appearance: Present: cooperative, A&O X 1, pleasant, no acute distress, obese, answers questions appropriately - Head Head exam: Present: atraumatic, normal inspection, normocephalic - Eye Eye exam: Present: normal appearance, conjuntiva pink, sclera anicteric - Neck Neck exam general surgery: Present: normal inspection, supple, trachea midline. Absent: lymphadenopathy, tenderness - Respiratory Respiratory exam: Present: CTAB. Absent: accessory muscle use, chest wall tenderness, rales, rhonchi, wheezes - Cardiovascular Cardiovascular exam: Present: RRR, +S1, +S2. Absent: diastolic murmur, gallop, rubs, systolic murmur - GI/Abdominal GI/Abdominal exam: Present: normal bowel sounds, soft. Absent: distended, hepatomegaly, tenderness - Extremities Exam Extremities exam: Present: normal capillary refill, normal inspection, warm, radial pulses palpable and symmetrical. Absent: calf tenderness, cyanotic, pedal edema, tenderness - Neurological Exam Neurological exam: Present: alert, CN II-XII intact, oriented X3, no focal deficits, strengths equal and symetr throughout. Absent: altered, motor sensory deficit, facial droop, speech deficit - Skin Skin exam: Present: dry, intact, normal color, warm. Absent: rash Internal Medicine: Result - Labs CBC & Chem 7: 09/11/17 04:15 09/11/17 04:15 Labs: Short CBC 09/11/17 Range/Units 04:15 WBC 8.0 (4.3-11.1) K/mcL Hgb 14.8 (12.9-16.9) g/dL Hct 43.2 (37.5-50.1) % Plt Count 153 (140-400) K/mcL Neutrophils # 5.5 (1.6-8.9) K/mcL BMP 09/11/17 04:15 Sodium 136 Potassium 4.1 Chloride 104 Carbon Dioxide 26 BUN 11 Creatinine 0.92 Glucose 296 H Calcium 8.7 - ABG Interpretation ABG results: ABG ABG pH 7.37 pH Units (7.32-7.45) 09/10/17 16:27 ABG pCO2 47 mmHg (35-45) H 09/10/17 16:27 ABG pO2 74 mmHg (85-104) L 09/10/17 16:27 ABG O2 Saturation 94 % (95-98) L 09/10/17 16:27 PT/INR, D-dimer PT 31.7 Seconds (9.4-12.1) H 09/11/17 04:15 - Impressions Impressions Echocardiogram 09/11/17 20:38 Impressions: LVEF 60%. Normal LV chamber size and function. Moderate concentric left ventricular hypertrophy. Indeterminate diastolic function. Atypical septal motion consistent with post-operative status. Normal right ventricular structure and function. Mechanical mitral valve appears well seated. No mitral regurgitation. Mean gradient 7 mmHg (HR 63). This is essentially unchanged from previous (6 mmHg, 08/01/2015). Mild tricuspid regurgitation. Moderate pulmonary hypertension. Estimated RVSP is 51 mmHg. A device lead was visualized in the right atrium and right ventricle. Agitated saline given. Image quality inadequate to evaluate for intra-cardiac shunting. Left Ventricular Wall Motion: Rest Echo Findings All wall segments showed normal motion. Findings: Study Quality * Technically sub-optimal due to poor echocardiographic windows. ECG Findings * Paced rhythm. Left Ventricle * LVEF 60%. * Normal LV chamber size and function. * Moderate concentric left ventricular hypertrophy. * Indeterminate diastolic function. * Atypical septal motion consistent with post-operative status. Right Ventricle * Normal right ventricular structure and function. Left Atrium * Left atrium is not well visualized. Right Atrium * Right atrium is not well visualized. Interatrial Septum * Interatrial septum not well evaluated. Aortic Valve * Aortic valve not well visualized. * Grossly, the aortic valve appears sclerotic. * No aortic regurgitation. * No aortic stenosis. Mitral Valve * Mechanical mitral valve appears well seated. * No mitral regurgitation. * Mean gradient 7 mmHg (HR 63). This is essentially unchanged from previous (6 mmHg, 08/01/2015). Tricuspid Valve * Normal tricuspid valve structure. * Mild tricuspid regurgitation. * Moderate pulmonary hypertension. * Estimated RVSP is 51 mmHg. * Estimated RA pressure is 5 mmHg. Pulmonic Valve * Normal pulmonic valve structure and function. * No pulmonic regurgitation. Aorta * Normally sized aortic root. Pericardium * The pericardium appears normal. IVC * Normal IVC dimensions and inspiratory collapse. Device lead * A device lead was visualized in the right atrium and right ventricle. Pulmonary Artery * Normal visualized portions of the main pulmonary artery. Consult Discharge Plan - Plan Referrals: Maura Vizcarra MD [Primary Care Provider] -
--- NOTE | 2017-09-11 17:59 | Discharge Summary ---
- NOTES TO OUTPATIENT PROVIDER Notes to Outpatient Provider: Pt presented with AMS, confusion, unsteady gait, and slurred speech. All symptoms have resolved. He was evaluated by neurology, EEG negative. They will follow up with him for continued testing in a few weeks , suspect seizures. Pt should not drive until cleared by neurology, can return to work when cleared by you. Orders not resulted at time of discharge: Pending orders 09/12/17 04:00 PT/INR [Prothrombin Time INR] [COAG] AM 0400 09/13/17 04:00 PT/INR [Prothrombin Time INR] [COAG] AM 0400 Date of Encounter: 09/11/17 Time of Encounter: 09:00 - Discharge Diagnosis (1) Altered mental status Priority: Primary Status: Acute Comments: Pt reports having no memory of most of yesterday. 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 He states that his daughters were home and they said that they saw him trying to make [employer]oh[employer] work. No one else was home to report his activities. He states that he doesn't remember much until he came to the ER. Prior history of same, but "not as bad as this." Family reports visual hallucinations, slurred speech, and unsteady gait during episode. He reports nausea without vomiting, no headache, weakness, numbness, or tingling. Symptoms lasted anywhere from 6-8 hours. Pt has returned to his baseline and has no focal deficits. Head CT negative in the ER. Pt had mild hyponatremia that has resolved, mild hyperglycemia, no leukocytosis or signs of infection. His vitals have been stable with mild HTN, which also resolved. Pt cannot have MRI due to pacemaker. Pt was evaluated by neurology and EEG was ordered. It was a normal awake study. No epileptiform discharges or other paroxysmal activities. I did speak with Dr. Condon who suggests that these episodes could be seizures. Will follow up with pt in the office in a few weeks for follow up EEG. Pt should not drive or perform activities that require him to be alert and responsible. Progress note initially completed, test results returned, discharge completed. Qualifiers: Altered mental status type: disorientation Qualified Code(s): R41.0 - Disorientation, unspecified (2) History of mitral valve replacement with mechanical valve Priority: Secondary Status: Chronic Comments: Per history. Patient on warfarin, therapeutic INR. (3) History of ventricular septal myectomy Priority: Secondary Status: Chronic Comments: Per history. Pt on Warfarin, therapeutic INR. (4) Hypertrophic obstructive cardiomyopathy (HOCM) Priority: Secondary Status: Chronic Comments: Chronic. STable. (5) Hypertension Priority: Secondary Status: Chronic Comments: Chronic. Stable. Continue home medications. Qualifiers: Hypertension type: essential hypertension Qualified Code(s): I10 - Essential (primary) hypertension (6) DVT prophylaxis Priority: Secondary Status: Acute Comments: Therapeutic on Warfarin. Hospital course: Mr. Guzmán is a 52 year old male with PMH of mitral valve replacement, ventricular septal myectomy, hypertrophic obstructive cardiomyopathy, hypertension. Patient presents to the emergency department with complaints of altered mental status, confusion, unsteady gait, slurred speech. Patient states that he remembers nothing of the day for approximately 6-8 hours. He remembers coming home from more, taking shower, eating breakfast and that is it until he arrived at the emergency room. On assessment this morning, patient reports that he has returned to his baseline, his no focal neurological deficits , exam is unremarkable. Head CT no emergency department was negative. EEG was negative. Chest x-ray and labs are within normal limits, no signs of infection or sepsis. Vital signs are stable. Echocardiogram with LVEF of 60%, moderate concentric LV hypertrophy, indeterminate diastolic unction. Mechanical mitral valve, no MR, mild TR. Bilateral carotid duplex unremarkable, essentially normal. Patient is returned to baseline. He states that he is ready to go home. He will need to be cleared by primary care to return to work. I spoke with neurology, patient is not to drive. He will need follow-up with neurology in a few weeks for continued evaluation and testing. Patient is stable for discharge. - Time Spent with Patient Total time spent providing and/or coordinating discharge services: - Discharge Medications Home Medications: Furosemide [Lasix] 20 mg PO DAILY 08/01/15 [History] LORazepam [Ativan] 1 mg PO BID PRN 08/01/15 [History] Spironolactone [Aldactone] 50 mg PO QAM 08/01/15 [History] Warfarin [Coumadin] 5 mg PO MOTUTHFRSA 08/01/15 [History] Carvedilol 18.75 mg PO BID 10/07/16 [History] amLODIPine [Norvasc] 5 mg PO DAILY 10/07/16 [History] Simvastatin [Zocor] 20 mg PO HS 09/10/17 [History] Tamsulosin [Flomax] 0.4 mg PO HS 09/10/17 [History] Warfarin [Coumadin] 2.5 mg PO SUWE 09/10/17 [History] Zolpidem [Ambien] 10 mg PO HS PRN 09/10/17 [History] metFORMIN [Glucophage] 500 mg PO BID 09/10/17 [History] Allergies/Adverse Reactions: 3 Allergy/AdvReac Type Severity Reaction Status Date / Time No Known Allergies Allergy Verified 11/14/16 09:07 Date of admission: 09/10/17 20:36 Primary care physician: Maura Vizcarra MD Consults: 09/10/17 20:39 Consult to Neurology [CONS] Routine Consulting Provider: [facility] Reason for Consult: AMS, unsteady gait, slurred speech Call Completed: No 09/11/17 15:33 Consult to Interpret Exam [CONS] Routine Consulting Provider: Carlos Condon I Consult to Interpret Exam: Interpret EEG Discharging clinician: Callie Mohr Anticipated date of discharge: 09/11/17 - Constitutional Vitals: Temp Pulse Resp BP Pulse Ox 98.0 F 60 16 118/70 94 09/11/17 04:17 09/11/17 04:17 09/11/17 04:17 09/11/17 04:17 09/11/17 04:17 General appearance: Present: cooperative, A&O X 3, pleasant, no acute distress, obese, answers questions appropriately - Head Head exam: Present: atraumatic, normal inspection, normocephalic - Eye Eye exam: Present: normal appearance, conjuntiva pink, sclera anicteric - Neck Neck exam general surgery: Present: supple, trachea midline. Absent: lymphadenopathy - Respiratory Respiratory exam: Present: CTAB. Absent: accessory muscle use, chest wall tenderness, rales, rhonchi, wheezes - Cardiovascular Cardiovascular exam: Present: RRR, +S1, +S2. Absent: diastolic murmur, gallop, rubs, systolic murmur - GI/Abdominal GI/Abdominal exam: Present: normal bowel sounds, soft. Absent: distended, hepatomegaly, tenderness - Extremities Exam Extremities exam: Present: normal capillary refill, normal inspection, warm, radial pulses palpable and symmetrical. Absent: calf tenderness, cyanotic, pedal edema, tenderness - Neurological Exam Neurological exam: Present: alert, oriented X3, no focal deficits. Absent: facial droop, speech deficit - Skin Skin exam: Present: dry, intact, normal color, warm. Absent: rash - Patient Status Disposition: Home, Self-Care Condition: Good Functional capacity at discharge: independent ambulation Overall status at discharge: patient is back to baseline - Discharge Instructions Follow Up With: Maura Vizcarra MD [Primary Care Provider] - Additional Instructions: You will need to be cleared to return to work by your PCP Do not drive until you are cleared by neurology. They will be contacting you to come to the office for an appointment. Take your medications as directed. Return to your normal activities as tolerated. Return to the ER as needed for any other problems or concerns, or if your symptoms return or worsen. - Diet and Activity Activity: increase activity as tolerated Diet: advance to your usual diet
[2017-09-11] MEDS ORDERED: *HR* Warfarin 5 MG TABLET PO SCH ×2 (18:00)
[2017-09-11] MEDS ORDERED: Warfarin perPT PO PRN (18:00)
[2017-09-14] MEDS ORDERED: *HR* Warfarin 2.5 MG TABLET PO SCH (18:00)
== END 2017-09-11 18:42 | disposition home or self-care (01) | DRG 101 ==
LOC: EMEROO 16:04 → 3BNU 16:04
PROVIDERS: ADMIT Hospitalist; ATTEND Registered Nurse

== ENCOUNTER 2021-06-17 03:13 | Inpatient (IN) ==
[2021-06-17 04:51] LABS: Basophils # 0.1 K/mcL (0.0-0.2); Basophils % 0.4 %; Eosinophils # 0.5 K/mcL (0.0-0.6); Hematocrit 45.4 % (37.5-50.1); Hemoglobin 14.9 g/dL (12.9-16.9); Immature Granulocytes % 0.3 % (0-4); Lymphocytes # 1.7 K/mcL (0.6-4.6); Lymphocytes % 14.2 %; Mean Corpuscular HGB Conc 32.8 g/dL (31.6-35.5); Mean Corpuscular Hemoglobin 29.4 pg (28.0-33.3); Mean Corpuscular Volume 89.5 fL (83.0-100.0); Mean Platelet Volume 9.7 fL (9.4-12.4); Monocytes # 0.5 K/mcL (0.0-1.3); Monocytes % 4.3 %; Neutrophils # 9.1 K/mcL (1.6-8.9); Platelet Count 192 K/mcL (140-400); Red Blood Count 5.07 M/mcL (4.19-5.50); Segmented Neutrophils % 76.8 %; White Blood Count 11.9 K/mcL (4.3-11.1)
[2021-06-17 05:11] LABS: BUN/Creatinine Ratio 27 (6-26); Blood Urea Nitrogen 41 mg/dL (6-20); Calcium 9.1 mg/dL (8.6-10.3); Carbon Dioxide 22 mEq/L (23-29); Chloride 106 mEq/L (98-107); Glucose 166 mg/dL (70-105); Osmolality,Calculated 298 (280-300); Potassium 4.5 mEq/L (3.5-5.1); Sodium 137 mEq/L (136-145); Troponin I < 0.03 ng/mL (< 0.04); eGFR For African Americans 58 (> 60); eGFR For Non-African Americans 48 (> 60)
[2021-06-17 06:11] LABS: Influenza A PCR Negative (Negative); Influenza B PCR Negative (Negative); Resp. Syncytial Virus PCR Negative (Negative)
[2021-06-17 06:13] LABS: SARS-CoV-2 by PCR (In House) Negative (Negative)
[2021-06-17] MEDS ORDERED: Isovue-370 500 ML BOTTLE IVP ONE (06:14)
[2021-06-17] MEDS ORDERED: levoFLOXacin 750 MG/150 ML 750 MG/150 ML BAG IVPB ONE (07:53)
[2021-06-17 08:42] LABS: INR 3.4; Prothrombin Time 37.8 Seconds (9.4-12.1)
[2021-06-17] MEDS ORDERED: D5% in Water 1,000 ML IVC PRN (09:29)
[2021-06-17] MEDS ORDERED: Dextrose Gel 15 GM/37.5 ML TUBE PO PRN ×2 (09:29)
[2021-06-17] MEDS ORDERED: *HR* Dextrose 50 % in Water (Syg) 50 ML SYRINGE IVP PRN (09:29)
[2021-06-17] MEDS ORDERED: 0.9 % Sodium Chloride 1,000 ML IVC SCH (09:30)
[2021-06-17] MEDS ORDERED: Ondansetron 4 MG/2 ML VIAL IVP PRN (09:30)
[2021-06-17] MEDS ORDERED: Naloxone 0.4 MG/ML INJ IVP PRN (09:30)
[2021-06-17] MEDS ORDERED: *HR* LORazepam 0.5 MG TABLET PO PRN (14:13)
[2021-06-17] MEDS: Ipratropium/Albuterol Neb 3 ML IH SCH ×3 (16:00→20:14)
[2021-06-17] MEDS: Insulin LISPRO 300 UNITS/3 ML VIAL SUBQ SCH ×2 (17:07→18:12)
[2021-06-17] MEDS: Cefepime HCl 2,000 MG in 0.9 % Sodium Chloride Mini Bag 100 ML IVPB SCH (17:16)
[2021-06-17] MEDS: carvediloL 25 MG TABLET PO SCH (17:16)
[2021-06-17] MEDS ORDERED: *HR* Warfarin 2.5 MG TABLET PO ONE (18:00)
[2021-06-17] MEDS ORDERED: Warfarin perPT PO PRN (18:00)
[2021-06-17] MEDS ORDERED: Insulin LISPRO 300 UNITS/3 ML VIAL SUBQ SCH (21:00)
[2021-06-18] MEDS: Cefepime HCl 2,000 MG in 0.9 % Sodium Chloride Mini Bag 100 ML IVPB SCH ×3 (00:11→15:22)
[2021-06-18] MEDS: Ipratropium/Albuterol Neb 3 ML IH SCH ×3 (04:10→16:19)
[2021-06-18 06:10] LABS: Basophils % 0.3 %; Eosinophils # 0.3 K/mcL (0.0-0.6); Eosinophils % 2.6 %; Immature Granulocytes % 0.8 % (0-4); Lymphocytes # 1.4 K/mcL (0.6-4.6); Lymphocytes % 12.1 %; Mean Corpuscular HGB Conc 33.8 g/dL (31.6-35.5); Mean Corpuscular Hemoglobin 29.4 pg (28.0-33.3); Monocytes # 0.7 K/mcL (0.0-1.3); Monocytes % 5.6 %; Neutrophils # 9.3 K/mcL (1.6-8.9); Platelet Count 171 K/mcL (140-400); Red Blood Count 3.91 M/mcL (4.19-5.50); Red Cell Distribution Width 13.1 % (11.5-14.5); Segmented Neutrophils % 78.6 %; White Blood Count 11.8 K/mcL (4.3-11.1)
[2021-06-18 06:11] LABS: Hemoglobin 11.5 g/dL (12.9-16.9)
[2021-06-18 06:19] LABS: INR 3.1; Prothrombin Time 34.2 Seconds (9.4-12.1)
[2021-06-18 06:34] LABS: BUN/Creatinine Ratio 21 (6-26); Blood Urea Nitrogen 26 mg/dL (6-20); Calcium 8.7 mg/dL (8.6-10.3); Carbon Dioxide 24 mEq/L (23-29); Chloride 106 mEq/L (98-107); Glucose 232 mg/dL (70-105); Magnesium 1.6 mg/dL (1.6-2.6); Osmolality,Calculated 292 (280-300); Potassium 4.5 mEq/L (3.5-5.1); Sodium 135 mEq/L (136-145); eGFR For African Americans > 60 (> 60); eGFR For Non-African Americans > 60 (> 60)
[2021-06-18] MEDS: carvediloL 25 MG TABLET PO SCH ×2 (08:00→17:58)
[2021-06-18] MEDS: Insulin LISPRO 300 UNITS/3 ML VIAL SUBQ SCH ×3 (08:01→17:58)
[2021-06-18] MEDS ORDERED: levoFLOXacin 750 MG/150 ML 750 MG/150 ML BAG IVPB SCH (09:00)
[2021-06-18 16:28] VITALS: BP 196/93; PULSE 71; TEMP 98; O2SAT 92
[2021-06-18 17:52] LABS: Hematocrit 37.3 % (37.5-50.1); Hemoglobin 12.3 g/dL (12.9-16.9)
[2021-06-18] MEDS ORDERED: *HR* Warfarin 5 MG TABLET PO ONE (18:00)
== END 2021-06-18 19:36 | disposition home or self-care (01) | DRG 193 ==
LOC: EMEROOARM 03:13 → 2ANU 15:58 → SUATTDRO 15:58 → 2ANU 16:25
PROVIDERS: ADMIT Family Medicine; ATTEND Student in an Organized Health Care Education/Training Program